=== PATIENT | female | born 1960 ===

== ENCOUNTER 2016-08-31 16:41 | Emergency (ER) | payer MEDICARE, MEDICAID ==
[~2016-08-31] VITALS: Ht 154.9 cm; Wt 61.4 kg
[2016-08-31] MEDS: BACITRACIN 0.9 GM PACKET OINTMENT TP ONE (18:28)
[2016-08-31 18:30] VITALS: BP 122/85
[2016-08-31] MEDS: PERTUSS(ACELL),DIPH,TET VAC/PF 0.5 ML VIAL IM ONE (18:38)
== END 2016-08-31 18:42 | disposition home or self-care (01) ==
LOC: EMS 16:44
DX: S01.91XA Laceration without foreign body of unspecified part of head, initial encounter (principal); I11.9 Hypertensive heart disease without heart failure; W20.8XXA Other cause of strike by thrown, projected or falling object, initial encounter; Y93.89 Activity, other specified; Y92.89 Other specified places as the place of occurrence of the external cause; Y99.8 Other external cause status
CPT/HCPCS: 90471; 90715; 99283